=== PATIENT | female | born 1980 | race African-American/Black ===

== ENCOUNTER → 2018-10-31 | Outpatient (CLI) | payer OTHER ==
--- NOTE | 2018-10-31 12:18 | KCIC ---
MR of the right shoulder HISTORY: Right shoulder pain for 18 months. Crepitus. TECHNIQUE: Routine multiplanar sequences are obtained. FINDINGS: Acromioclavicular joint is intact. Small ununited os acromiale. The rotator cuff demonstrates thickening compatible with tendinosis. There is a partial-thickness undersurface tear of the supraspinatus tendon and infraspinatus tendon. This is up to 80% deep. No complete through and through rupture or retraction. Mild subscapularis tendinosis. Trace subdeltoid bursal fluid. Trace glenohumeral joint effusion. No acute articular cartilage defect. Thick cordlike middle glenohumeral ligament is incidentally noted. Signal within the posterosuperior labrum, best seen on a single coronal slice, suspicious for a tear. The biceps tendon is intact. No bone lesion or acute fracture. No acute soft tissue abnormality. IMPRESSION: 1. Rotator cuff tendinosis. Deep articular surface tear of the supraspinatus and infraspinatus tendon without through and through rupture. 2. Small posterosuperior labral tear is suspected. Electronically signed by: Werner Bahena MD (10/31/2018 12:14 PM) [id number]
== END | disposition home or self-care (01) ==
LOC: KCIC MRI 10:07
PROVIDERS: ATTEND Orthopaedic Surgery
DX: M75.101 Unspecified rotator cuff tear or rupture of right shoulder, not specified as traumatic (principal); M79.672 Pain in left foot; M79.5 Residual foreign body in soft tissue; M25.411 Effusion, right shoulder
CPT/HCPCS: 73221

== ENCOUNTER → 2018-10-31 | Outpatient (CLI) | payer OTHER ==
--- NOTE | 2018-10-31 13:48 | KCIC ---
FOOT LEFT 2V History: Left foot pain, possible foreign body. FINDINGS: A marker is positioned at the plantar aspect of the foot at the level of the proximal metatarsals, indicating the area of concern. No evidence of radiopaque metallic foreign body in this region. No evidence of acute fracture. No aggressive bone destruction. No dislocation. No significant soft tissue abnormality. IMPRESSION: No acute radiographic findings Electronically signed by: Werner Bahena MD (10/31/2018 1:43 PM) [id number]
== END | disposition home or self-care (01) ==
LOC: KCIC 10:09
PROVIDERS: ATTEND Nurse Practitioner Family
DX: M79.672 Pain in left foot (principal)
CPT/HCPCS: 73620

== ENCOUNTER → 2018-12-12 | Day surgery (SDC) | payer OTHER ==
[~2018-12-12] VITALS: Ht 160 cm; Wt 69.9 kg
[~2018-12-12] MED LIST: ALBU2.5V8 INH; ALPR0.25 PO; ALPR2TAB2 PO; BUPIVAC MPF-EPI 0.5%-1:200000 30 ML VIAL. ONE; BUPIVACAINE MPF 0.5% 30 ML VIAL. ONE; DEXAMETHASONE SOD PHOS 20 MG/5 ML VIAL. ONE; EPINEPHrine VIAL 30 MG/30 ML VIAL ONE; FAMOTIDINE 20 MG/2 ML VIAL ONE; HYDROmorphone 2 MG/ML VIAL IV PRN; INSU100I13 SQ; INSU100V11 IJ; IV RINGERS,LACTATED 1000ML 1,000 ML IV SCH; LAMO200T2 PO; LIDOCAINE 1% PF 2 ML VIAL. ID PRN; LIDOCAINE 1% PF 2 ML VIAL. ONE; LIDOCAINE 2% PF 5 ML VIAL. ONE; MIDAZOLAM HCL/PF 2 MG/2 ML VIAL. ONE; MORPHINE SULFATE 2 MG/ML VIAL. IV PRN; ONDANSETRON PF 4 MG/2 ML VIAL. IV PRN; ONDANSETRON PF 4 MG/2 ML VIAL. ONE; OXYC1TAB19 PO; PHENYLEPHRINE in 0.9% NACL PF 1 MG/10 ML SYRINGE. IV ONE; PROCHLORPERAZINE 10 MG/2 ML VIAL. IV PRN; PROPOFOL 20 ML IV ONE; PROPOFOL 50 ML IV ONE; SEVOFLURANE 61 TO 120 MINUTES. IH ONE; TRAM50TA PO; fentaNYL PF VIAL 100 MCG/2 ML VIAL IV PRN; fentaNYL PF VIAL 100 MCG/2 ML VIAL ONE; oxyCODONE/APAP 7.5/325 1 TAB TABLET PO ONE
[2018-12-12 09:15] LABS: U PREG PATIENT NEGATIVE (NEG)
--- NOTE | 2018-12-12 12:17 | DISCH ---
DISCHARGE INSTRUCTIONS Condition on Discharge Condition on Discharge: Stable Activity After Discharge Activity Instructions for Disc: Other, see below (fine motor use with right arm at side only such as eating writing, keyboard etc.) Lifting Instructions after Dis: No pulling or pushing Weight Bearing Status after Di: Non weight bearing Diet after Discharge Diet after Discharge: Regular Wound Incision Care Wound/Incision Care: Change dressing (remove dressing in 2 days may then shower ) Community/Resources/Services Services at Discharge: PT EVALUATE & TREAT (passive and active assisted range of motion only no active range of motion or strengthening for about 4 weeks postoperatively) Contacting the DRKerri after DC Call your doctor for: Concerns you may have Follow-Up Follow up with: Leyda 10 days Treatment/Equipment after DC Adaptive Equipment Issued: None (where immobilizer at night, may remove during day for gentle motion exercises, therapy, shower etc.) KATIUSKA MARQUIS MD Dec 12, 2018 12:17
--- NOTE | 2018-12-12 12:35 | PDOC4 ---
Operative Note Operative Note Date of surgery: 12/12/2018 Preoperative diagnosis: High-grade rotator cuff tear and suspected superior labral tear as well as os acromiale question whether symptomatic Postoperative diagnosis: High-grade undersurface pasta rotator cuff tear, significant superior labral fraying with intact biceps anchor, subacromial impingement with no evidence of unstable os acromiale Operative procedure: Right shoulder arthroscopy, arthroscopic rotator cuff repair, debridement superior labrum and subacromial decompression Surgeon: Leyda Assist: Susana Anesthesia: Gen. plus scalene block Estimated blood loss: 10 mL Complications: None Operative indications: Patient is a 38-year-old female with right shoulder pain and weakness unresponsive to nonoperative management. Please see my clinic note for detailed indications but note that she was noted to have a partial undersurface rotator cuff tear question of labral involvement and a possibly symptomatic os acromiale. I had gone over with her the treatment for each of these conditions and the fact that the specific treatment would depend on intraoperative findings but we would potentially plan a rotator cuff repair and treatment of the other pathology as appropriate. I had gone over with her risks benefits postoperative course the rationale for protection long recovery process expected and the possibility of nonhealing nerve or blood vessel damage medical or other anesthetic complications among others all her questions were answered she wishes to proceed with surgical evaluation and treatment. Operative text: Patient was identified procedure verified patient placed in the supine position on the operating table. After adequate amounts of general endotracheal anesthesia plus a pre-existing scalene block were obtained she was placed right side up and the decubitus position with a beanbag all bony prominences were well-padded shoulder was then examined under anesthesia found have full range of motion with no instability and after the right shoulder was prepped and draped in standard sterile fashion placed in the arthroscopic arm tiwari with a total of 10 pounds of traction. Timeout process verified patient and operative site as the right shoulder, and a standard posterior portal was established an anterior portal established using spinal needle localization and the shoulder joint was systematically examined. She was found to have a very high grade near full-thickness undersurface rotator cuff tear and significant superior labral fraying which was debrided back to stable tissue. The biceps anchor was irritated but no fraying or peelback lesion was noted. Superior portion of the subscapularis was also debrided lightly but the insertion was otherwise intact capsule ligament structures were otherwise normal and glenohumeral joint was in good condition. Subacromial space was then entered and bursal was cleared to allow visualization. An unstable os acromiale was not observed however she did have signs of impingement in the coracoacromial ligament was taken down and the anterior acromial spur was converted to a type I acromion using cutting block technique. The acromioclavicular joint capsule was not violated during this procedure. Bursal side of the rotator cuff was not fully torn through and therefore a pasta repair of the rotator cuff was carried out as follows by placing 2 all suture anchors along the medial row and 1 suture limb from each was tied together and brought through a superior portal brought down on the rotator cuff and the 2 free suture limbs were secured with a knot pusher with alternating post-half hitches that provided excellent apposition. The rotator cuff was reapproximated to the footprint and verified intact in all degrees of internal/external rotation the joint was drained of arthroscopic fluid portals closed with nylon suture sterile dressings were applied she was placed in an immobilizer extirpated removed returned to recovery room in stable condition having tolerated procedure well. Susana terry assisted in the prepping draping positioning for the procedure as well as skin closure KATIUSKA MARQUIS MD Dec 12, 2018 12:35
[2018-12-12 13:18] VITALS: BP 131/84
== END | disposition home or self-care (01) ==
LOC: SURG 08:11
PROVIDERS: ATTEND Orthopaedic Surgery
DX: S46.011A Strain of muscle(s) and tendon(s) of the rotator cuff of right shoulder, initial encounter (principal); S43.431A Superior glenoid labrum lesion of right shoulder, initial encounter; M75.41 Impingement syndrome of right shoulder; E11.9 Type 2 diabetes mellitus without complications; F41.9 Anxiety disorder, unspecified; J45.909 Unspecified asthma, uncomplicated; Z98.890 Other specified postprocedural states; Z83.3 Family history of diabetes mellitus; F17.210 Nicotine dependence, cigarettes, uncomplicated; Z79.899 Other long term (current) drug therapy; X58.XXXA Exposure to other specified factors, initial encounter; Y93.89 Activity, other specified; Y92.89 Other specified places as the place of occurrence of the external cause; Y99.8 Other external cause status; Z79.84 Long term (current) use of oral hypoglycemic drugs
CPT/HCPCS: 29822; 29827; 81025; 82962; A7015; C1713; J0171; J0690; J1100; J2001; J2250; J2370; J2405; J2704; J3010; J3490

== ENCOUNTER → 2019-04-28 | Outpatient (CLI) | payer MEDICAID ==
[2018-12-12 13:18] VITALS: BP 131/84
[~2019-04-28] MED LIST changes: -BUPIVAC MPF-EPI 0.5%-1:200000 30 ML VIAL. ONE; -BUPIVACAINE MPF 0.5% 30 ML VIAL. ONE; -DEXAMETHASONE SOD PHOS 20 MG/5 ML VIAL. ONE; -EPINEPHrine VIAL 30 MG/30 ML VIAL ONE; -FAMOTIDINE 20 MG/2 ML VIAL ONE; -HYDROmorphone 2 MG/ML VIAL IV PRN; -IV RINGERS,LACTATED 1000ML 1,000 ML IV SCH; -LIDOCAINE 1% PF 2 ML VIAL. ID PRN; -LIDOCAINE 1% PF 2 ML VIAL. ONE; -LIDOCAINE 2% PF 5 ML VIAL. ONE; -MIDAZOLAM HCL/PF 2 MG/2 ML VIAL. ONE; -MORPHINE SULFATE 2 MG/ML VIAL. IV PRN; -ONDANSETRON PF 4 MG/2 ML VIAL. IV PRN; -ONDANSETRON PF 4 MG/2 ML VIAL. ONE; -PHENYLEPHRINE in 0.9% NACL PF 1 MG/10 ML SYRINGE. IV ONE; -PROCHLORPERAZINE 10 MG/2 ML VIAL. IV PRN; -PROPOFOL 20 ML IV ONE; -PROPOFOL 50 ML IV ONE; -SEVOFLURANE 61 TO 120 MINUTES. IH ONE; -fentaNYL PF VIAL 100 MCG/2 ML VIAL IV PRN; -fentaNYL PF VIAL 100 MCG/2 ML VIAL ONE; -oxyCODONE/APAP 7.5/325 1 TAB TABLET PO ONE
--- NOTE | 2019-04-28 16:41 | KCIC ---
EXAM: Chest, 2 views. HISTORY: Cough. COMPARISON: None. FINDINGS: 2 views of the chest are obtained. There is no infiltrate, pleural effusion or pneumothorax. The heart is normal in size. IMPRESSION: No acute pulmonary finding. Electronically signed by: Heidi Valdes MD (04/28/2019 4:38 PM) [place] [id number]
== END | disposition home or self-care (01) ==
LOC: KCIC 16:09
PROVIDERS: ATTEND Family Medicine
DX: R05 Cough (principal); F17.200 Nicotine dependence, unspecified, uncomplicated
CPT/HCPCS: 71046

== ENCOUNTER → 2020-05-05 | Outpatient (CLI) | payer MEDICAID ==
[2018-12-12 13:18] VITALS: BP 131/84
[~2020-05-05] MED LIST changes: -LAMO200T2 PO; +LAMO200T6 PO
--- NOTE | 2020-05-05 15:57 | KCIC ---
STUDY: MRI of the right shoulder without contrast INDICATION: Ongoing right shoulder pain despite surgery. COMPARISON: Right shoulder MRI 10/31/2018 TECHNIQUE: Multiplanar MR imaging of the right shoulder performed without the use of intravenous or intra-articular contrast. FINDINGS: AC joint: Again demonstrated is an os acromiale but the ossicle is smaller in size suggesting interval subacromial decompression. Marrow edema of the distal acromion/ossicle and a small amount of fluid within the subacromial subdeltoid bursa. Rotator cuff: Interval rotator cuff repair with suture anchors located at the supraspinatus and infraspinatus insertions. Heterogeneous intrasubstance T2 signal elevation within the supraspinatus and anterior infraspinatus at and extending just medial to the footprint. No large fluid signal tear defect or retraction of tendon fibers to suggest a recurrent full-thickness tear. The most anterior surgical defect within the greater tuberosity is mildly patulous with internal T2 signal elevation, image 9 series 6. There is a small amount of susceptibility artifact within the tendon substance but no definitive findings of anchor retraction out of the bone. The teres minor is intact. The subscapularis is intact. Rotator cuff musculature bulk and signal is normal. Labrum: Unchanged. Long head biceps tendon: Intact and normally located. Cartilage: Appears intact. Bones: No acute fracture. Normal glenohumeral alignment. Miscellaneous: Unremarkable axillary soft tissues. No significant shoulder joint effusion. Impression: 1. Operative changes of subacromial decompression and rotator cuff repair. Heterogeneous intrasubstance signal particularly within the supraspinatus at and medial to the footprint and also extending to the anterior infraspinatus but there is no evidence for a recurrent full-thickness tear. There may be partial low grade tearing at the anterior to mid supraspinatus at the footprint but this is difficult to differentiate from tendinosis in combination with post-operative change. Normal rotator cuff muscular bulk and signal. 2. The most anterior supraspinatus suture anchor defect is patulous. Loosening is a consideration but no anchor is seen retracted from the bone. 3. Unchanged labrum and long head biceps tendon. No newly seen chondral abnormality. No significant shoulder joint effusion. Electronically signed by: SEVERINO EDDY MD (05/05/2020 3:54 PM) [id number]
== END | disposition home or self-care (01) ==
LOC: KCIC MRI 10:49
PROVIDERS: ATTEND Orthopaedic Surgery
DX: M25.511 Pain in right shoulder (principal); Z96.611 Presence of right artificial shoulder joint
CPT/HCPCS: 73221

== ENCOUNTER → 2021-12-29 | Outpatient (CLI) | payer MEDICAID ==
[2018-12-12 13:18] VITALS: BP 131/84
[~2021-12-29] MED LIST changes: +CETI10TA16 PO; +FLUT1DIS IH; +HYDR-2761 PO; +IBUP-1060 PO
== END ==
LOC: LAB 11:19
PROVIDERS: ATTEND Surgery
DX: Z01.812 Encounter for preprocedural laboratory examination (principal); Z20.822 Contact with and (suspected) exposure to COVID-19
CPT/HCPCS: U0003

== ENCOUNTER 2022-01-01 09:51 | Day surgery (SDC) | payer MEDICAID ==
[~2022-01-01] VITALS: Ht 160 cm; Wt 70.0 kg
[~2022-01-01 09:51] MED LIST changes: -HYDR-2761 PO; +HYDROmorphone 2 MG/ML INJ. IVP PRN; +MORPHINE SULFATE 2 MG/ML INJ. IVP PRN; +PROCHLORPERAZINE 10 MG/2 ML VIAL. IVP PRN; +ceFAZolin SODIUM IV Push 1 GM VIAL. IVP PRN; +fentaNYL PF VIAL 100 MCG/2 ML VIAL IVP PRN
[2022-01-01] MEDS ORDERED: LIDOCAINE 2% PF 5 ML VIAL. ONE (10:22)
[2022-01-01] MEDS ORDERED: PROPOFOL 10 MG/ML (20ML) VIAL. IV ONE (10:22)
[2022-01-01] MEDS ORDERED: MIDAZOLAM HCL/PF 2 MG/2 ML VIAL. ONE (10:23)
[2022-01-01] MEDS ORDERED: LIDOCAINE 1%/EPI 1:100,000 20 ML VIAL. ONE (10:25)
[2022-01-01] MEDS: INSULIN LISPRO 100 UNIT/ML 3ML VIAL for OP,RR ONLY. SQ PRN ×2 (10:32→12:00)
[2022-01-01] MEDS: IV RINGERS,LACTATED 1000ML 1,000 ML IV SCH ×2 (10:33→10:35)
--- NOTE | 2022-01-01 11:48 | PDOC4 ---
Operative Note Operative Note Operative Note: Preoperative Diagnosis: Left neck cystic mass Postoperative Diagnosis: Same Procedure: Excision of left neck cystic mass, 3 X 2.5 cm, subcutaneous Surgeon: Ko Waiter/[employer]ress [employer]: Silviano Rees MS 3 Anesthesia: Local MAC EBL: 5 mL Specimen: Cystic mass to pathology Drains: None Complications: None Indication: The patient is a 41-year-old female who is referred due to symptomatic cystic mass of the left neck near the jawline. She requests excision. The risks of surgery were discussed which include bleeding, infection, scar tissue, recurrence, pain, anesthetic risk, potential need for additional surgery procedure. She understands and would like to proceed. Description: The patient was taken to the operating room and placed supine on the operating table. Monitored anesthesia care was provided. The left neck and face was prepped with Betadine and draped in a standard surgical manner. 1% lidocaine with epinephrine was used to infiltrate the skin. Elliptical incision was made around the midportion of the cystic mass. Sharp dissection was carried down well into the subcutaneous tissues. The mass was mobilized from the surrounding tissues and appeared consistent with an inflamed epidermal inclusion cyst. This was fully excised and measured 3 x 2.5 cm. The specimen was sent to pathology for evaluation. Hemostasis was achieved with cautery. The subcutaneous tissue was closed with 3-0 Vicryl. Skin was approximated with 4-0 Monocryl. Steri-Strips and a sterile dressing were applied. The patient tolerated the procedure well and was sent to the recovery room in stable condition. At the end the case all counts were correct. GARRETT PATRICIA MD Jan 01, 2022 11:48
[2022-01-01] MEDS ORDERED: HYDR-2761 PO (11:51)
--- NOTE | 2022-01-01 11:52 | DISCH ---
DISCHARGE INSTRUCTIONS Condition on Discharge Condition on Discharge: Stable Activity After Discharge Activity Instructions for Disc: Activity as tolerated Wound Incision Care Wound/Incision Care: Other, see below (keep incision clean and dry X 72 hours, steristrips will fall off on their own) Follow-Up Follow up with: Dr Patricia in 1 week in office, call for appt [phone] GARRETT PATRICIA MD Jan 01, 2022 11:52
[2022-01-01] MEDS ORDERED: INSULIN LISPRO 100 UNIT/ML 3ML VIAL for OP,RR ONLY. SQ ONE ×2 (12:00)
[2022-01-01 12:15] VITALS: BP 119/74
--- NOTE | 2022-01-06 11:11 | PATHOLOGY ---
[facility] Accession Number: [id number] . 01 Material submitted: . face - FACIAL LESION LEFT. Modifiers: left . 01 Clinical history: . EXCISION OF FACE LESION . 02 Diagnosis: Skin "left facial lesion", excision: - Granulomatous dermatitis with dermal fibrosis. - Negative for malignancy. - Please see comment. (IRISH:maxi; 01/05/2022) R 01/05/2022 1116 Local . 02 Comment: PAS and AFB special stains are performed and are negative for fungal and acid-fast microorganisms respectively. In order of likelihood, the differential diagnosis includes reactions to previously ruptured cyst or follicle, tick bite, foreign body reaction or infection. Clinical correlation is recommended. . The case is seen in consultation with dermatopathologist, Dr. Edy Crouch, on 01/05/2022. . (IRISH:maxi; 01/05/2022) . 02 Electronically signed: . Monique Cabrera MD, Pathologist NPI- [id number] . 01 Gross description: . The specimen is received in formalin, labeled "Bethanie Morton, left facial lesion" and consists of an unoriented elliptical skin excision (1.8 x 0.9 m, excised to a depth of 1.0 cm) which is surfaced with brown-black and wrinkled skin that displays a yen-stern central slightly roughened area of discoloration (0.2 x 0.2 cm) that comes to within 0.7 cm from the nearest tip, 1.0 cm from the opposing tip, 0.3 cm from the nearest edge margin and 0.4 cm from the opposing edge margin. The specimen is serially sectioned and submitted sequentially, entirely in 3 cassettes with the tips submitted in A3. (NEWTOK; 01/01/2022) DKA/DKA 01/01/2022 1551 Local . 02 Microscopic: . Immunohistochemical stain results (properly controlled): AFB (A1, A2) - negative for organisms. GMS (A1, A2) - negative for organisms. (MLK:maxi; 01/05/2022) . 02 Pathologist provided ICD-10: L30.8 . 02 CPT . 301767, 617651, 956025, 000084, [id number] Specimen Comment: A courtesy copy of this report has been sent to [phone] Specimen Comment: Report sent to Specimen Comment: A duplicate report has been generated due to demographic updates. Performed at: 01 [facility] [address], [place] [id number] MD Lam Yeh MD Phone: [phone] Performed at: [facility] [address], [place] [id number] MD John Toledo MD Phone: [phone]
== END 2022-01-01 12:55 | disposition home or self-care (01) ==
LOC: SURG 09:51
PROVIDERS: ATTEND Surgery
DX: R22.1 Localized swelling, mass and lump, neck (principal); L30.8 Other specified dermatitis; E78.00 Pure hypercholesterolemia, unspecified; E11.9 Type 2 diabetes mellitus without complications; J45.909 Unspecified asthma, uncomplicated; F41.9 Anxiety disorder, unspecified; Z87.891 Personal history of nicotine dependence; Z79.4 Long term (current) use of insulin; Z79.899 Other long term (current) drug therapy; Z98.890 Other specified postprocedural states; Z72.89 Other problems related to lifestyle
CPT/HCPCS: 11443; 81025; 82962; 88305; 88312; A4364; A4930; J0690; J1815; J2250; J2704; J3490; A4452; A4657